=== PATIENT | female | born 1970 | race Caucasian/White ===

== ENCOUNTER 2017-02-27 06:55 | Emergency (ER) | payer MEDICARE, MEDICAID ==
[2017-02-27 07:35] LABS: #Basophils 0.1 thou/uL (0.0-0.2); #Eosinphils 0.5 thou/uL (0.0-0.7); #Lymphocytes 3.7 thou/uL (1.20-3.40); #Monocytes 0.9 thou/uL (0.11-0.59); #Neutrophils 8.3 thou/uL (1.40-6.50); %Basophils 0.5 % (0.0-1.0); %Eosinophils 3.9 % (0.0-10.0); %Lymphocytes 27.4 % (21.0-51.0); %Monocytes 6.8 % (0.0-10.0); Hematocrit 45.2 % (36.0-47.0); Mean Platelet Volume 6.6 fL (7.4-10.4); Red Blood Cell (RBC) Count 5.06 mill/uL (4.20-5.40); White Blood Cell (WBC) Count 13.5 thou/uL (4.8-10.8)
--- NOTE | 2017-02-27 07:56 | RAD ---
CHEST PA AND LATERAL: HISTORY: A 46-year-old female with dyspnea. Recent upper respiratory tract infection. COMPARISON: 01/03/17. FINDINGS: Heart size is within normal limits. The lungs are clear. No pneumonia, edema, pleural effusion, or other acute process. IMPRESSION: No acute intrathoracic disease. Stable from prior study. POS: [facility]
[2017-02-27 07:59] LABS: ALT (SGPT) 38 U/L (8-55); AST (SGOT) 26 U/L (5-34); Alkaline Phosphatase 89 U/L (40-150); Anion Gap 16 mmol/L (10-20); BUN (Urea Nitrogen) 8 mg/dL (7.0-18.7); Bilirubin, Total 1.3 mg/dL (0.2-1.2); CK (CPK) 31 U/L (29-168); Calc. Creatinine Clearance 0 mL/min (70-130); Calcium 9.3 mg/dL (7.8-10.44); Carbon Dioxide 25 mmol/L (22-29); Chloride 103 mmol/L (98-107); Estimated GFR-MDRD 89; Protein, Total 6.7 g/dL (6.0-8.3)
[2017-02-27 08:01] LABS: Troponin I Less than 0.010 ng/mL (< 0.028)
[2017-02-27] MEDS ORDERED: methylPREDNISolone Sod Succ/PF 125 MG/2 ML VIAL ONE (08:10)
[2017-02-27] MEDS ORDERED: Water For Inject, Bacteriostat 30 ML ONE (08:10)
[2017-02-27] MEDS ORDERED: traMADol HCl 50 MG TAB ONE (10:26)
[2017-02-27] MEDS ORDERED: Ketorolac Tromethamine 30 MG/ML VIAL ONE (10:38)
--- NOTE | 2017-02-27 10:53 | CT ---
CT PULMONARY ANGIOGRAM CHEST WITH 3D RENDERING: HISTORY: A 46-year-old female with dyspnea. COMPARISON: 05/18/16. FINDINGS: Bolus timing was somewhat less than optimal. Central pulmonary arteries are free of thrombus. Some of the more peripheral pulmonary arteries are somewhat less than optimally opacified with contrast, but there is no significant CT evidence for acute pulmonary embolism. No evidence of aortic aneury sm or dissection. No pleural effusion or pericardial effusion. No mediastinal mass or adenopathy. Fatty changes in the liver. IMPRESSION: No significant CT evidence for acute pulmonary embolism. Fatty changes in the liver. POS: [facility]
[2017-02-27] MEDS ORDERED: Azithromycin 250 MG TAB ONE (11:27)
[2017-02-27] MEDS ORDERED: ISOVUE-370 76%-LOCM 1 ML ONE (16:05)
--- NOTE | 2017-04-16 12:32 | EKG ---
Test Reason : Blood Pressure : / mmHG Vent. Rate : 102 BPM Atrial Rate : 102 BPM P-R Int : 118 ms QRS Dur : 074 ms QT Int : 340 ms P-R-T Axes : 028 030 048 degrees QTc Int : 443 ms Sinus tachycardia No STEMI Otherwise normal ECG Confirmed by LORENA BARAKAT ([id number]), television news video editor JANET CHONG ([id number]) on 04/16/2017 12:32:10 PM Referred By: Confirmed By:LORENA BARAKAT
== END 2017-02-27 11:36 | disposition home or self-care (01) ==
LOC: ERS 06:55
DX: J18.9 Pneumonia, unspecified organism (principal); I11.0 Hypertensive heart disease with heart failure; I50.9 Heart failure, unspecified; I48.91 Unspecified atrial fibrillation; E11.9 Type 2 diabetes mellitus without complications; J44.9 Chronic obstructive pulmonary disease, unspecified; F41.9 Anxiety disorder, unspecified; F31.9 Bipolar disorder, unspecified; Z79.4 Long term (current) use of insulin
CPT/HCPCS: 36415; 71020; 71275; 80053; 82550; 82553; 83880; 84484; 85025; 87040; 93005; 94640; 96374; 96375; J1885; J2930; J7620

== ENCOUNTER 2017-09-07 09:19 | Emergency (ER) | payer MEDICARE, MEDICAID ==
--- NOTE | 2017-09-07 10:17 | RAD ---
TWO VIEWS CHEST: Date: 09-07-17 Comparison: 02-27-17 History: Cough and cold for several days, chronic cough from COPD. FINDINGS: There is no pneumothorax or pleural fluid and no focal consolidation or alveolar edema. Heart and med iastinal contours are unremarkable. IMPRESSION: No acute findings. POS: [facility]
[2017-09-07 10:18] LABS: #Eosinphils 0.4 thou/uL (0.0-0.7); #Lymphocytes 2.9 thou/uL (1.20-3.40); #Monocytes 0.6 thou/uL (0.11-0.59); %Basophils 0.4 % (0.0-1.0); %Eosinophils 3.9 % (0.0-10.0); %Lymphocytes 28.9 % (21.0-51.0); %Monocytes 6.5 % (0.0-10.0); %Neutrophils 60.3 % (42.0-75.0); Hemoglobin 15.6 g/dL (12.0-16.0); Mean Corpuscular HGB CONC 34.9 g/dL (32.0-36.0); Mean Corpuscular Hemoglobin 30.5 pg (27.0-31.0); Mean Corpuscular Volume 87.3 fl (81.0-99.0); Mean Platelet Volume 6.4 fL (7.4-10.4); Platelet Count 261 thou/uL (130-400); RBC Distribution Width 12.1 % (11.5-14.5); Red Blood Cell (RBC) Count 5.13 mill/uL (4.20-5.40); White Blood Cell (WBC) Count 9.9 thou/uL (4.8-10.8)
[2017-09-07 10:42] LABS: ALT (SGPT) 33 U/L (8-55); AST (SGOT) 31 U/L (5-34); Albumin 3.9 g/dL (3.5-5.0); Alkaline Phosphatase 79 U/L (40-150); Anion Gap 10 mmol/L (10-20); BUN (Urea Nitrogen) 14 mg/dL (7.0-18.7); Bilirubin, Total 1.1 mg/dL (0.2-1.2); Calc. Creatinine Clearance 0 mL/min (70-130); Calcium 9.2 mg/dL (7.8-10.44); Carbon Dioxide 24 mmol/L (22-29); Chloride 106 mmol/L (98-107); Estimated GFR-MDRD 86; Globulin 2.9 g/dL (2.4-3.5); Glucose 257 mg/dL (70-105); Potassium 4.1 mmol/L (3.5-5.1); Protein, Total 6.8 g/dL (6.0-8.3); Sodium 136 mmol/L (136-145)
== END 2017-09-07 10:56 | disposition home or self-care (01) ==
LOC: ERS 09:19
DX: J20.9 Acute bronchitis, unspecified (principal); J31.0 Chronic rhinitis; I11.0 Hypertensive heart disease with heart failure; I50.9 Heart failure, unspecified; I48.91 Unspecified atrial fibrillation; E11.9 Type 2 diabetes mellitus without complications; J44.9 Chronic obstructive pulmonary disease, unspecified; Z20.2 Contact with and (suspected) exposure to infections with a predominantly sexual mode of transmission; F41.9 Anxiety disorder, unspecified; F31.9 Bipolar disorder, unspecified; Z79.4 Long term (current) use of insulin; Z79.899 Other long term (current) drug therapy
CPT/HCPCS: 36415; 71046; 80053; 83880; 85025; 87804; 93005; 94640; J7620

== ENCOUNTER 2018-09-08 20:30 | Outpatient (CLI) | payer MEDICARE, MEDICAID | END 2018-09-08 20:31 | disposition home or self-care (01) | LOC: SLEEPLAB 20:30 | PROVIDERS: ATTEND Internal Medicine Pulmonary Disease | DX: G47.33 Obstructive sleep apnea (adult) (pediatric) (principal); R53.83 Other fatigue; R09.89 Other specified symptoms and signs involving the circulatory and respiratory systems; F31.9 Bipolar disorder, unspecified; F41.8 Other specified anxiety disorders; G47.00 Insomnia, unspecified; I51.89 Other ill-defined heart diseases; G47.10 Hypersomnia, unspecified; I10 Essential (primary) hypertension; J44.9 Chronic obstructive pulmonary disease, unspecified; E11.9 Type 2 diabetes mellitus without complications; R06.83 Snoring; E66.9 Obesity, unspecified; Z68.42 Body mass index [BMI] 45.0-49.9, adult | CPT/HCPCS: 95810 ==

== ENCOUNTER 2018-10-23 20:30 | Outpatient (CLI) | payer MEDICARE, MEDICAID | END 2018-10-23 20:31 | disposition home or self-care (01) | LOC: SLEEPLAB 20:30 | PROVIDERS: ATTEND Internal Medicine Pulmonary Disease | DX: G47.33 Obstructive sleep apnea (adult) (pediatric) (principal); R53.83 Other fatigue; R09.89 Other specified symptoms and signs involving the circulatory and respiratory systems; F31.9 Bipolar disorder, unspecified; I51.9 Heart disease, unspecified; G47.00 Insomnia, unspecified; F41.8 Other specified anxiety disorders; G47.10 Hypersomnia, unspecified; E66.9 Obesity, unspecified; Z68.42 Body mass index [BMI] 45.0-49.9, adult | CPT/HCPCS: 95811 ==

== ENCOUNTER 2018-10-31 12:27 | Outpatient (CLI) | payer MEDICARE, MEDICAID ==
--- NOTE | 2018-11-01 15:24 | PFT ---
PATIENT HISTORY: HEIGHT: 69 IN WEIGHT: 324 SMOKER: NO HOW LONG: NA PACKS PER DAY PRODUCTIVE COUGH: LUNG DISEASE: PHYSICIAN INTERPRETATION FINAL REPORT: Pulmonary Function Test revels severe in Expiratory Flows and Vital Capacity.There was minimal improvement in flows following Bronchodilator Therapy. RV is hyper-inflated, RV/TLC was hyper-expanded; gas transfer was severely reduced. Airway resistance was markedly increased. IMPRESSION: Obstructive ventilatory impairment severe. Severe reduction in diffusion capacity. The values have remained stable for the past three years, in fact some of the values have slightly improved. Alterations Supervisor: CHRISTINA Sales Support Assistant: CHRISTINA DUNCAN
== END 2018-10-31 12:28 | disposition home or self-care (01) ==
LOC: CP 12:27
PROVIDERS: ATTEND Internal Medicine Pulmonary Disease
DX: R06.02 Shortness of breath (principal)
CPT/HCPCS: 94060; 94727; 94729

== ENCOUNTER 2018-11-12 03:46 | Emergency (ER) | payer MEDICARE, MEDICAID ==
[2018-11-12 04:42] LABS: #Eosinphils 0.3 thou/uL (0.0-0.7); #Lymphocytes 3.4 thou/uL (1.20-3.40); #Monocytes 0.8 thou/uL (0.11-0.59); #Neutrophils 6.2 thou/uL (1.40-6.50); %Basophils 0.1 % (0.0-1.0); %Eosinophils 2.6 % (0.0-10.0); %Lymphocytes 31.7 % (21.0-51.0); %Monocytes 7.3 % (0.0-10.0); %Neutrophils 58.3 % (42.0-75.0); Hemoglobin 14.6 g/dL (12.0-16.0); Mean Corpuscular HGB CONC 34.4 g/dL (32.0-36.0); Mean Corpuscular Hemoglobin 30.9 pg (27.0-31.0); Mean Corpuscular Volume 89.6 fL (78.0-98.0); Mean Platelet Volume 6.8 fL (7.4-10.4); Platelet Count 250 thou/uL (130-400); RBC Distribution Width 12.3 % (11.5-14.5); Red Blood Cell (RBC) Count 4.75 mill/uL (4.20-5.40); White Blood Cell (WBC) Count 10.6 thou/uL (4.8-10.8)
[2018-11-12 05:01] LABS: ALT (SGPT) 21 U/L (8-55); AST (SGOT) 13 U/L (5-34); Albumin 3.7 g/dL (3.5-5.0); Alkaline Phosphatase 88 U/L (40-150); Anion Gap 13 mmol/L (10-20); BUN (Urea Nitrogen) 15 mg/dL (7.0-18.7); Calc. Creatinine Clearance 0 mL/min (70-130); Calcium 9.7 mg/dL (7.8-10.44); Carbon Dioxide 25 mmol/L (22-29); Chloride 101 mmol/L (98-107); Estimated GFR-MDRD 67; Globulin 2.6 g/dL (2.4-3.5); Glucose 383 mg/dL (70-105); Potassium 3.9 mmol/L (3.5-5.1); Protein, Total 6.3 g/dL (6.0-8.3); Sodium 135 mmol/L (136-145)
--- NOTE | 2018-11-12 09:06 | RAD ---
CHEST 1 VIEW: Date: 11/12/18 INDICATION: History of throbbing leg pain. COMPARISON: Prior exam dated 09/07/17. FINDINGS: No consolidation, pleural effusion, or pneumothorax is evident. Heart size is within normal limits. N o acute osseous abnormality is demonstrated. IMPRESSION: No acute cardiopulmonary abnormality. POS: [facility]
--- NOTE | 2018-11-12 09:13 | ULT ---
LEFT LOWER EXTREMITY DOPPLER VENOUS ULTRASOUND: Date: 11/12/18 INDICATION: Left lower extremity pain and lump to lateral thigh. TECHNIQUE: Ramirez scale, color Doppler, and vascular duplex with spectral analysis was performed of the deep venou s structures of the left lower extremity. The common femoral vein, superficial femoral vein, proximal greater saphenous vein, proximal greater profunda vein, popliteal, and posterior tibial veins were a ssessed. FINDINGS: Normal compression, flow, and augmentation was seen within the deep venous structures of the left low er extremity. No drainable fluid collection or mass identified within the palpable region of interest of the left lateral thigh. IMPRESSION: No evidence of deep venous thrombosis within the left lower extremity. POS: [facility]
== END 2018-11-12 06:01 | disposition home or self-care (01) ==
LOC: ERS 03:46
DX: M79.605 Pain in left leg (principal); I11.0 Hypertensive heart disease with heart failure; E11.9 Type 2 diabetes mellitus without complications; I49.9 Cardiac arrhythmia, unspecified; I50.9 Heart failure, unspecified; I48.91 Unspecified atrial fibrillation; J44.9 Chronic obstructive pulmonary disease, unspecified; F41.9 Anxiety disorder, unspecified; F31.9 Bipolar disorder, unspecified; Z79.899 Other long term (current) drug therapy; Z79.51 Long term (current) use of inhaled steroids; Z79.4 Long term (current) use of insulin
CPT/HCPCS: 36415; 71045; 80053; 83880; 84484; 85025; 85379; 93005